=== PATIENT | male | born 1935 | race Caucasian/White ===

== ENCOUNTER 2021-12-13 06:25 | Observation (INO) ==
--- NOTE | 2021-11-15 09:00 | PAT Medication Instructions ---
Medication Instructions Date of Service November 15, 2021 Home Medications aspirin 81 mg tablet,delayed release 81 mg PO PM atenolol 25 mg tablet 25 mg PO QAM celecoxib 100 mg capsule (Celebrex) 100 mg PO QAM coenzyme Q10 100 mg capsule (Co Q-10) 100 mg PO QAM cyanocobalamin (vitamin B-12) 1,000 mcg tablet 1,000 mcg PO QAM fluticasone fur. 200 mcg-umeclid 62.5 mcg-vilant 25 mcg inhalat.powder (Trelegy Ellipta) 1 inh inhalation QAM glucosamine-chondroitin 250 mg-200 mg tablet (Osteo Bi-Flex) 2 tab PO QAM guaifenesin 1,200 mg tablet, extended release 12 hr (Mucinex) 1,200 mg PO BID multivitamin 1 tab PO QAM pantoprazole 20 mg tablet,delayed release (Protonix) 20 mg PO QAM rosuvastatin 40 mg tablet (Crestor) 40 mg PO PM valsartan 320 mg-hydrochlorothiazide 25 mg tablet 1 tab PO PM ASK your surgeon for instructions celecoxib 100 mg capsule (Celebrex) 100 mg PO QAM STOP taking 2 weeks before surgery coenzyme Q10 100 mg capsule (Co Q-10) 100 mg PO QAM glucosamine-chondroitin 250 mg-200 mg tablet (Osteo Bi-Flex) 2 tab PO QAM DO NOT take the morning of surgery cyanocobalamin (vitamin B-12) 1,000 mcg tablet 1,000 mcg PO QAM guaifenesin 1,200 mg tablet, extended release 12 hr (Mucinex) 1,200 mg PO BID multivitamin 1 tab PO QAM Take morning of surgery With a small sip of water, OTHERWISE NOTHING TO EAT OR DRINK AFTER MIDNIGHT: atenolol 25 mg tablet 25 mg PO QAM fluticasone fur. 200 mcg-umeclid 62.5 mcg-vilant 25 mcg inhalat.powder (Trelegy Ellipta) 1 inh inhalation QAM pantoprazole 20 mg tablet,delayed release (Protonix) 20 mg PO QAM Take evening before surgery aspirin 81 mg tablet,delayed release 81 mg PO PM (unless directed otherwise by surgeon) guaifenesin 1,200 mg tablet, extended release 12 hr (Mucinex) 1,200 mg PO BID rosuvastatin 40 mg tablet (Crestor) 40 mg PO PM valsartan 320 mg-hydrochlorothiazide 25 mg tablet 1 tab PO PM Other Notes If you have any questions please call us at [phone] or [phone] or or [phone]
--- NOTE | 2021-11-21 10:49 | Anesthesiology Consultation ---
Date of Service November 21, 2021 Assessment & Plan (1) Encounter for pre-operative examination: - will attempt to obtain copy of nuclear results of 09/25/18 stress test, most recent aneurysm imaging and office note from Dr. Blanca with [facility]. - anesthesia complication history: history of awareness during TKA, post-op combative behavior. Chart Review Chart Review: Pending: Refer to Additional Notes / Consult section and Patient seen in Pre Admission Testing Teaching & Discussion Pre-Anesthesia Teaching/Discussion Notes: Instructed NPO after midnight before surgery, except medications with 15 cc of water. Medication instructions provided according to the PAT guidelines. History Surgery Operation Date: 12/13/21 07:00 Proposed Procedures p Right Total Knee Arthroplasty - Anurag Ware MD Height/Weight Height: 5 ft 8 in Weight: 100.2 kg Allergies Allergy/AdvReac Type Severity Reaction Status Date / Time adhesive Allergy Unknown "skin red" Verified 11/11/21 12:22 bacitracin Allergy Unknown RASH Verified 11/11/21 12:22 neomycin Allergy Unknown RASH Verified 11/11/21 12:22 polymyxin B Allergy Unknown RASH Verified 11/11/21 12:22 Medications Home Medications Medication Instructions Recorded Confirmed Last Taken aspirin 81 mg tablet,delayed 81 mg PO PM 11/11/21 11/11/21 Unknown release atenolol 25 mg tablet 25 mg PO QAM 11/11/21 11/11/21 Unknown celecoxib 100 mg capsule (Celebrex) 100 mg PO QAM 11/11/21 11/11/21 Unknown coenzyme Q10 100 mg capsule (Co 100 mg PO QAM 11/11/21 11/11/21 Unknown Q-10) cyanocobalamin (vitamin B-12) 1,000 mcg PO QAM 11/11/21 11/11/21 Unknown 1,000 mcg tablet fluticasone fur. 200 mcg-umeclid 1 inh inhalation QAM 11/11/21 11/11/21 Unknown 62.5 mcg-vilant 25 mcg inhalat.powder (Trelegy Ellipta) glucosamine-chondroitin 250 mg-200 2 tab PO QAM 11/11/21 11/11/21 Unknown mg tablet (Osteo Bi-Flex) guaifenesin 1,200 mg tablet, 1,200 mg PO BID 11/11/21 11/11/21 Unknown extended release 12 hr (Mucinex) multivitamin 1 tab PO QAM 11/11/21 11/11/21 Unknown pantoprazole 20 mg tablet,delayed 20 mg PO QAM 11/11/21 11/11/21 Unknown release (Protonix) rosuvastatin 40 mg tablet (Crestor) 40 mg PO PM 11/11/21 11/11/21 Unknown valsartan 320 1 tab PO PM 11/11/21 11/11/21 Unknown mg-hydrochlorothiazide 25 mg tablet Wheeled Walker #1 ea 11/21/21 11/21/21 Unknown Past Medical History Medical History (Updated 11/21/21 @ 13:48 by Alayna Olson PA-C) Aortic aneurysm 5cm per pt > follows with Dr. Blanca at [facility], last checked approx 1 month ago Chronic obstructive pulmonary disease well controlled, stable per pt DJD (degenerative joint disease) GERD (gastroesophageal reflux disease) controlled, stable per pt History of anesthesia reaction awareness during anesthesia, post-op combative behavior History of COVID-06 Feb 2021 > congestion > denies hospitalization > resolved Hyperlipidemia Hypertension controlled, stable per pt Internal carotid artery stent present R, replaced 10-11 yrs later per pt through [facility] study-placed in 2005 s/p stroke Neuropathy hands and feet Skin cancer nose, s/p excision Sleep apnea cpap-compliant Stroke hx of 2005 > very mild per pt, no residual problems, no longer follows with neuro Patient denies h/o seizures, heart attack, heart failure, DM, blood clots or blood transfusions. Exercise / Class Metabolic Activity II 4-5 Yardwork/Stairs/Walk up hill (denies CP or SOB with 1 FOS) Past Family History Family History Father Lung cancer Past Surgical History Surgical History History of cataract surgery bilat History of colonoscopy History of esophagogastroduodenoscopy (EGD) with dilation History of tonsillectomy History of tooth extraction History of total knee replacement left Hx of melanoma excision nose S/P AAA repair Oct 2020 > [facility] Past Anesthesia History No Family Hx of Anesthesia Complications and Other (post-op combativeness, awareness during TKA) History of PONV No Hx of PONV and No Hx of Motion Sickness Social History Smoking Status: Former smoker Do You Dip or Chew Tobacco: No Smoking End Date: 1958 Hx Alcohol Use: Yes Alcohol type: beer alcohol intake frequency: a few times a week Hx Substance Use: No substance use type: does not use Review of Systems Patient denies chest pain, shortness of breath, dyspnea on exertion, fever, chills, cough, wheezing, or palpitations. Physical Exam Vital Signs Vitals BP 151/77 P 58 TEMP 98.9 SP02 95% on RA RESP 18 Physical Full cervical extension range of motion without pain TMD 3.5 finger breadths Mallampati Score 3 Dentition: intact, one bridge-upper; denies chipped or loose teeth, caps/crowns Lungs: normal respiratory effort. Good respiratory effort, good air movement. Mild end expiratory wheezes throughout, no rales or rhonchi Cardiac: regular rate and rhythm, no murmurs noted Carotid arteries: negative bruit bilat Lab Results Anesthesia Preop Results Results Anesthesia Widget: WBC 10.68 K/ul (4.8-10.8) 11/21/21 Hgb 13.0 g/dl (14.0-18.0) L 11/21/21 Hct 37.9 % (40.1-51.0) L 11/21/21 Plt 160 K/uL (130-400) 11/21/21 Na 137 mmol/L (136-145) 11/21/21 K 4.0 mmol/L (3.5-5.1) 11/21/21 Cl 105 mmol/L (98-107) 11/21/21 CO2 25 mmol/L (21-32) 11/21/21 BUN 20 mg/dl (6-23) 11/21/21 Creat 0.92 mg/dl (0.6-1.4) 11/21/21 Glucose Level 94 mg/dl (70-99(Fasting)) 11/21/21 PT 10.9 Seconds (9.0-12.0) 11/21/21 PTT 26.3 Seconds (21.0-31.0) 11/21/21 INR 1.0 (0.9-1.1) 11/21/21 Blood Type A Positive 11/21/21 Antibody Screen NEGATIVE 11/21/21 Testing Electrocardiogram Date: 11/11/21 NSR, rate 82 bpm Possible anterolateral infarct, age undetermined Chest X-Ray Date: 11/21/21 The heart is enlarged noting atherosclerotic calcification of the thoracic aorta. The pulmonary vasculature is noncongested. Chronic interstitial thickening is similar to previous. There are scattered calcified granulomas. Scarring/atelectasis is noted at the lung bases. The lungs and pleural spaces are otherwise clear. There is no pneumothorax. The skeletal structures are osteopenic. The bony thorax appears intact. Degenerative change is noted in the shoulders and thoracic spine. IMPRESSION: Cardiomegaly with no active disease in the chest. Echocardiogram Date: 01/07/21 EF 60-65% Normal LV diastolic filling No LV wall motion abnormalities Aortic root with off axis views but proximal ascending aorta overall appears aneurysmal at 5.0 cm and sinus of Valsalva is mildly dilated at 4 cm No significant valvular abnormalities Stress Test Date: 09/25/18 Pharmacologic MPHR not reported Unremarkable ECG portion. No ischemic ECG changes Nuclear results to be reportedly separately COVID-19 Risk Screen Screening Information COVID-19 Screen Date: 11/21/21 Exposure 21 Days Family/Household +COVID Last 21 Days: No Exposure 10 Days Any COVID Exposure Last 10 Days: No Symptoms Last 10 Days Experienced COVID Sx Last 10 Days: No + COVID 0-90 Days COVID + in Last 0-90 Days: No
[~2021-12-13 06:25] MED LIST: ACETAMINOPHEN 500 MG TAB PO SCH; BUPIVACAINE 0.5 % 5 MG/1 ML PF 10ML VIAL ONE; BUPIVACAINE LIPOSOME/PF 266 MG, BUPIVACAINE/EPINEPHRINE 50 ML, SODIUM CHLORIDE 0.9% 30 ... INFIL SCH; CeleBREX 200 MG CAP PO SCH; FAMOTIDINE 20 MG TAB PO SCH; LR 500ML BOLUS, THEN 15ML/HR IV SCH; LR 60ML/HR IV SCH; METOCLOPRAMIDE HCL 10 MG TABLET PO SCH; ROPIVACAINE 0.5% 5 MG/ML 30 ML VIAL ONE; ceFAZolin 2000MG 2,000 MG/15 ML SYR IV SCH
--- NOTE | 2021-12-13 06:54 | History & Physical Bridge Note ---
Date of Service December 13, 2021 History & Physical Bridge Note I have examined the patient, reviewed the History & Physical and in the interval since the performance of the History & Physical I have noted the following changes of clinical significance: no changes noted
[2021-12-13] MEDS ORDERED: MIDAZOLAM HCL 1 MG/ML 2ML VIAL ONE (07:49)
[2021-12-13] MEDS ORDERED: fentaNYL citrate 100 MCG/2 ML VIAL ONE (07:50)
[2021-12-13] MEDS ORDERED: PROPOFOL IV EMULSION 10 MG/ML 20 ML VIAL IV ONE (07:53)
[2021-12-13] MEDS ORDERED: ONDANSETRON INJ 2 MG/ML 2 ML VIAL ONE (07:54)
[2021-12-13] MEDS ORDERED: BUPIVACAINE LIPOSOME 1.3% 266 MG/20 ML VIAL ONE (09:04)
[2021-12-13] MEDS ORDERED: BUPIVACAINE/EPINEPHRINE 0.25% 1:200,000 30 ML VIAL ONE (09:04)
[2021-12-13] MEDS ORDERED: SODIUM CHLORIDE 0.9% PF 50 ML VIAL ONE (09:04)
[2021-12-13] MEDS ORDERED: ePHEDrine sulfate 50 MG/ML AMP ONE ×2 (09:29→10:01)
[2021-12-13] MEDS ORDERED: LIDOCAINE 2% MPF LOCAL 5 ML VIAL INFIL ONE (09:29)
[2021-12-13] MEDS ORDERED: ePHEDrine sulfate 50 MG/ML AMP IV PRN (09:35)
[2021-12-13] MEDS ORDERED: fentaNYL citrate 100 MCG/2 ML VIAL IV PRN (09:35)
[2021-12-13] MEDS ORDERED: ATROPINE SULFATE 0.1 MG/ML 10ML SYR IV PRN (09:35)
[2021-12-13] MEDS ORDERED: HYDROmorphone INJ 2 MG/ML SYR/VIAL IV PRN (09:35)
[2021-12-13] MEDS: TRANEXAMIC ACID 1,000 MG **IV Intra-op IV SCH ×2 (10:18→10:32)
[2021-12-13] MEDS ORDERED: TRANEXAMIC ACID / 0.7% NACL 1000MG/100ML BAG IV ONE (10:32)
--- NOTE | 2021-12-13 11:13 | Operative Report ---
PG Post Operative Report Pre & Post Diagnosis Operation Date: 12/13/21 08:50 Pre-Op Diagnosis: Right Knee Advanced Degerative Joint Disease Post-Op Diagnosis: Right Knee Advanced Degerative Joint Disease I identified the patient and participated in the time-out.: Yes Procedure Operation Date: 12/13/21 08:50 Actual Procedures p Right Total Knee Arthroplasty(Right) - Anurag Ware MD Surgeon Anurag Ware MD Psychology Professor Geovani Velasco PA-C Estimated Blood Loss 50 Findings Consistent with Post-Op Diagnosis Operative findings real advanced right knee DJD. He had extensive grade 4 [id number] disease of the medial as well as the patellofemoral compartment. He had some spotty grade 4 changes laterally. Varus deformity to his knee with a moderate-sized knee joint effusion. Fluids 1200 cc Specimens Right knee sent for pathology Drains None Anesthesia Type Spinal MAC Complications none Disposition Accompanied Patient To Recovery: No Indications Patient is an 86-year-old gentleman said a long history of knee problems over the years. This been through extensive conservative treatment in the past. He had his left knee replaced about 8 years ago and is done well from this. Continued be limited by right knee pain and discomfort which is gotten worse over time. Elected proceed with total knee arthroplasty. Description of Procedure Operative implants consist of: 1 Biomet Vanguard size 75 right posterior stabilized femoral component. 2. Biomet size 83 tibial tray. 3. 12 mm posterior stabilized polyethylene insert. 4. 34 x 8 and half all Paller patella. The patient was taken the operating, identified, placed on the operating table supine position protectors were properly padded. IV antibiotics tried by anesthesia team. A spinal anesthetic and abductor canal block had provided in the holding area. Klein catheter was placed in sterile fashion. Right thigh high tourniquet was then placed in the right lower extremities then prepped and draped in usual sterile fashion. The right leg was elevated exsanguinated with use of an Esmarch interspaced at 300 mmHg. An anterior approach of the right knee was then performed through a longitudinal incision centered over the patella. Sharp dissection was carried through subcutaneous this down the extensor mechanism. A medial parapatellar arthrotomy incision was made. Some subperiosteal dissection was carried out medially. The fat pad was resected from Neath patella tendon. Lateral patellofemoral ligament was released. Patella subluxated laterally and the knee was flexed. The osteophytes taken off distal femur. The ACL and PCL were then released from distal femur the tibia subluxated anteriorly. The external tibial alignment jig was then placed in the interface the tibia and adjusted 14 mm medially. Proximal tibial cut was made remove about a millimeter bone from most deficient aspect medial tibial plateau. The tibia was a size 83. Attention drawn the femur. The distal femur examined the sharp drill. Intramedullary canal was suction. A right 6 degree valgus cutting guide was placed. Distal femoral cutting block was pinned in place. Distal femoral cut was made to take an additional 3 mm of bone off distal femur. The femur was then sized to a size 75. Sized almost exactly to a 75. The AP cutting block was pinned parallel to the epicondylar axis which was 5 degrees of external rotation. Anterior cut, anterior chamfer, posterior cut, posterior chamfer cuts were made. The box cutting guide was placed in just slight lateral and the box cut was made. The knee was flexed. The remnants of the medial lateral menisci were excised. The osteophytes were taken off the posterior aspect the femur. Trial femoral component was placed. Tibial tray was pinned in maximum external rotation and the drill and stem punch were used to create defect in proximal tibia for the tibial tray. Knee was then trialed and the 12 mm insert fit most appropriately. Attention drawn to the patella. The patella was cleaned of all soft tissues. Patella thickness measured 21 mm in thickness and was cut down to 14. Was sized to a size 34 patella. The lug holes were drilled for 34 patella. The lateral osteophyte was removed. Patella button was placed. Knee was taken through range of motion patella tracked nicely with no thumbs test. Attention drawn to place the permanent components. Nupathe all trial components were removed. Bone plug was placed in the distal femur limit blood loss. A double batch Palacos G cement was mixed. Biomet HumansFirst Technologyguard size 75 right posterior stabilized femoral component, size 83 tibial tray, a 12 mm posterior stabilized polyethylene insert, and a 34 x 8 and half all Paller patella then cemented in place. Knee was brought out into full extension total cement hardened. Final cement check was then performed. Pericapsular tissues were injected with total of 100 cc of combination of 20 cc of Exparel, 30 cc normal saline, 50 cc of quarter percent Marcaine with epinephrine. Patient did receive 1 g tranexamic acid. The tourniquet was then let down for final tourniquet time 54 minutes. Hemostasis reduced electrocautery. Extensor mechanism closed with combination 1 PDS suture #1 Vicryl suture in [id number] fashion. Extensor mechanism checked found to be intact. Subcutaneous tissue then closed with 2 Dexon suture in a buried interrupted fashion and the skin was closed skin rosana. Leg was then cleaned and dried a sterile dressing was Xeroform, 4 x 4's, sterile cast padding, Hector bandage were applied. Patient then transferred to the recovery room in stable condition. Patient tolerated procedure well and there were no complications. Geovani Velasco, my physician catalog library assistant, was present for the entire procedure. His assistance was essential and required for appropriate patient positioning, prepping and draping, surgical exposure, performing the technical details of the operation, placement the implants, closure of the wound, and placement of the sterile bandage. I attest to the content of the Intraoperative Record and any orders documented therein. Any exceptions are noted below.
--- NOTE | 2021-12-13 11:55 | XRay Report ---
XR knee RT 1 or 2V routine CLINICAL HISTORY: Postoperative evaluation. COMPARISON: Knee radiographs August 18, 2021. FINDINGS: Spherical metallic densities within the right leg were noted on prior radiographs and sugg ests BBs. Alignment of the total right knee arthroplasty is anatomic. There is no periprosthetic frac ture or unexpected radiopaque foreign body. There are skin rosana. IMPRESSION: Expected findings following total right knee arthroplasty. ACT 112: Negative or not required by law. Electronically signed by: Nilesh Ortega M.D. 12/13/2021 11:53 AM
--- NOTE | 2021-12-13 13:03 | Anesthesiology Progress Note ---
Date of Service December 13, 2021 Anesthesia Post Procedure Vital Signs Vital Signs: Temp Pulse Resp BP Pulse Ox O2 Del Method O2 Flow Rate 12/13/21 12:30 55 L 18 128/62 98 Nasal Cannula 2 12/13/21 12:20 36.3 C L 63 12 107/56 L 97 Nasal Cannula 2 12/13/21 12:05 54 L 13 111/61 92 Nasal Cannula 2 12/13/21 11:55 59 L 12 103/60 99 Nasal Cannula 2 12/13/21 11:45 57 L 12 113/58 L 94 Nasal Cannula 2 12/13/21 11:35 60 12 101/60 92 Room Air 12/13/21 11:15 60 18 97/53 L 98 Oxymask 6 12/13/21 11:25 64 16 105/52 L 94 Room Air 12/13/21 11:06 36.1 C L 61 20 93/53 L 94 Oxymask 6 12/13/21 06:50 36.9 C 55 L 20 123/64 94 Room Air Pain Intensity Right Knee: Pain Intensity: 1 Transfer of Care Handoff Completed per policy Notes Mental Status: alert / awake / arousable and participated in evaluation Patient Amnestic to Procedure: Yes Nausea / Vomiting: adequately controlled Pain: adequately controlled Airway Patency, RR, SpO2: stable & adequate BP & HR: stable & adequate Hydration State: stable & adequate Neuraxial Anesthesia: was administered and sensory block is resolving Anesthetic Complications: no major complications apparent and Pt Satisfied with anesthetic care
[2021-12-13] MEDS ORDERED: ONDANSETRON INJ 2 MG/ML 2 ML VIAL IV PRN (13:15)
[2021-12-13] MEDS ORDERED: bisacodyL 10 MG SUPP PR PRN (13:15)
[2021-12-13] MEDS ORDERED: ALUMINUM/MAGNESIUM SUSP 30 ML UDC PO PRN (13:15)
[2021-12-13] MEDS ORDERED: oxyCODONE HCL IR 5 MG TAB (IMMEDIATE RELEASE) PO PRN (13:15)
[2021-12-13] MEDS ORDERED: MAGNESIUM HYDROXIDE SUSP 30 ML UDC PO PRN (13:15)
[2021-12-13] MEDS ORDERED: METOCLOPRAMIDE HCL INJ 5 MG/ML 2 ML VIAL IV PRN (13:15)
[2021-12-13] MEDS ORDERED: HYDROmorphone INJ 0.5 MG/0.5 ML SYR IV PRN (13:15)
[2021-12-13] MEDS ORDERED: NALOXONE HCL 0.4 MG/1 ML VIAL/CARP IV PRN (13:15)
[2021-12-13] MEDS: SODIUM CHLORIDE 0.9% 1000ML 1,000 ML IV SCH ×2 (13:32→22:44)
[2021-12-13] MEDS: ACETAMINOPHEN 500 MG TAB PO SCH ×2 (13:59→21:02)
[2021-12-13] MEDS: ASCORBIC ACID 500 MG TAB PO SCH (17:10)
[2021-12-13] MEDS: KETOROLAC TROMETHAMINE 15 MG/ML VIAL IV SCH (17:11)
[2021-12-13] MEDS: ceFAZolin 2000MG 2,000 MG/15 ML SYR IV SCH (17:11)
[2021-12-13] MEDS ORDERED: TRANEXAMIC ACID / 0.7% NACL 1,000 MG/100 ML BAG IV SCH (17:15)
[2021-12-13] MEDS: ASPIRIN 81 MG ECTAB PO SCH (20:59)
[2021-12-13] MEDS: DOCUSATE SODIUM 100 MG CAP PO SCH (21:00)
[2021-12-13] MEDS ORDERED: SENNA 8.6 MG TAB PO SCH (21:00)
[2021-12-13] MEDS ORDERED: DOCUSATE SODIUM/SENNA 50/8.6MG TAB PO SCH (21:00)
[2021-12-13] MEDS ORDERED: ROSUVASTATIN CALCIUM 20 MG TAB PO SCH (21:00)
[2021-12-13] MEDS ORDERED: VALSARTAN/HCTZ 160/12.5MG TAB PO SCH (21:00)
[2021-12-13] MEDS: guaiFENesin 600 MG TABCR PO SCH (21:00)
[2021-12-13] MEDS ORDERED: hydroCHLOROthiazide 25 MG TAB PO SCH ×2 (22:15)
[2021-12-13] MEDS ORDERED: VALSARTAN 80 MG TAB PO SCH ×2 (22:15)
[2021-12-14] MEDS: KETOROLAC TROMETHAMINE 15 MG/ML VIAL IV SCH ×3 (00:24→12:19)
[2021-12-14] MEDS: traMADol HCL 50 MG TABLET PO PRN ×2 (00:25→10:06)
[2021-12-14] MEDS: ceFAZolin 2000MG 2,000 MG/15 ML SYR IV SCH (00:29)
[2021-12-14] MEDS: ACETAMINOPHEN 500 MG TAB PO SCH (05:58)
[2021-12-14 07:36] LABS: Hematocrit (blood only) 32.2 % (40.1-51.0); Hemoglobin 10.9 g/dl (14.0-18.0); Mean Corpuscular Hemoglobin 32.1 pg (25.0-34.0); Mean Corpuscular Hgb Conc 33.9 g/dL (32.0-36.0); Mean Corpuscular Volume 94.7 fL (80.0-100.0); Mean Platelet Volume 8.9 fL (9.4-12.4); Platelet Count 120 K/uL (130-400); RDW Coefficient of Variation 13.8 % (11.5-14.5); RDW Standard Deviation 47.8 fL (36.4-46.3); White Blood Count 9.82 K/ul (4.8-10.8)
[2021-12-14 07:56] LABS: BUN Creatinine Ratio 19.3 (10-20); Calcium 8.1 mg/dl (8.5-10.1); Creatinine Clr Calc Pharmacy 57.8 ml/min; Est GFR (African American) 71.9 ml/min; Potassium 4.2 mmol/L (3.5-5.1)
[2021-12-14] MEDS ORDERED: dexAMETHasone 10 MG in SYRINGE 0 ML IV SCH (08:00)
[2021-12-14] MEDS ORDERED: UMECLIDINIUM/VILANTEROL 62.5/25MCG 7 PUFFS/INHALER INH SCH (08:00)
[2021-12-14] MEDS ORDERED: FLUTICASONE FUROATE 200MCG 14 PUFFS/INHALER INH SCH (08:00)
[2021-12-14] MEDS ORDERED: ATENOLOL 25 MG TABLET PO SCH (09:00)
[2021-12-14] MEDS ORDERED: MULTIVITAMIN TAB PO SCH ×2 (09:00)
[2021-12-14] MEDS ORDERED: CYANOCOBALAMIN (B-12) 500 MCG TABLET PO SCH (09:00)
[2021-12-14] MEDS ORDERED: TAMSULOSIN HCL 0.4 MG CAP PO SCH (09:00)
[2021-12-14] MEDS ORDERED: NON-FORMULARY MEDICATION (Coenzyme Q10 [Co Q-10] 100 mg Capsule) PO SCH (09:00)
[2021-12-14] MEDS ORDERED: GLUCOSAMINE SULFATE 500 MG CAP PO SCH (09:00)
[2021-12-14] MEDS ORDERED: PANTOprazole 40 MG TAB PO SCH (09:00)
[2021-12-14] MEDS: ASCORBIC ACID 500 MG TAB PO SCH (09:11)
[2021-12-14] MEDS: DOCUSATE SODIUM 100 MG CAP PO SCH (09:14)
[2021-12-14] MEDS: ASPIRIN 81 MG ECTAB PO SCH (09:14)
[2021-12-14] MEDS: guaiFENesin 600 MG TABCR PO SCH (09:15)
--- NOTE | 2021-12-14 13:08 | Progress Notes ---
DATE OF SERVICE: 12/14/2021. SUBJECTIVE: An 86-year-old gentleman, postoperative day 1 from right knee replacement. He is doing quite well. Pain is controlled. Therapy went well. No chest pain or shortness of breath. He is ho ping to go home. OBJECTIVE: VITAL SIGNS: Temperature 36.6. Vital signs are stable. PHYSICAL EXAMINATION: GENERAL: Shows a pleasant, elderly male. He is sitting up in bedside chair, eating lunch. Looks co mfortable. LUNGS: Clear to auscultation. HEART: Has a regular rate and rhythm. ABDOMEN: Soft, nontender, nondistended. EXTREMITIES: Grossly neurovascularly intact except as follows: Examination of the right knee reveal s the dressing to be clean, dry and intact. He can dorsiflex and plantarflex his foot appropriately. He is neurologically intact. LABORATORY DATA: Hemoglobin 10.9. Hematocrit 32.2. Electrolytes are stable. ASSESSMENT: An 86-year-old gentleman, postoperative day 1 from right knee replacement, doing pretty well. Pain is controlled. He is neurologically intact. Therapy went well. PLAN: 1. DVT prophylaxis includes thigh-high TEDs, SCDs, and aspirin twice a day. 2. PT, OT, weightbear as tolerated. Right total knee protocol. 3. Pain control, doing okay with current pain regimen. 4. Disposition: Plan to discharge to home with some home health later today. Job ID: [id number]
--- NOTE | 2021-12-17 17:19 | Discharge Summary ---
Date of Service December 17, 2021 Discharge Data Procedures Performed Operation Date: 12/13/21 08:50 Actual Procedures p Right Total Knee Arthroplasty(Right) - Anurag Ware MD Hospital Course (1) Status post total right knee replacement: This is a 86 year old patient admitted on 12/13/21 and underwent total knee arthroplasty. He tolerated the procedure well and there were no complications. Transferred to the PACU post op and later to the orthopedic floor for further care. He was given ancef for antibiotic prophylaxis. He was also given MARTHA stockings, SCDs, and aspirin for DVT prophylaxis. Hemoglobin, hematocrit, and vital signs were monitored during his hospital stay and remained stable. Did not require any blood transfusions. There were no complications during [facility] stay. By post op day #1 the patient was tolerating a regular diet, pain was reasonably controlled with oral pain medicine, and he was participating in physical therapy. On post op day #1 the patient was discharged home and set up with home health care. He was given printed discharge instructions including prescriptions for extra strength tylenol, aspirin, ketorolac, zofran, senokot, flomax, and ox ycodone. Continue physical therapy, weight bearing as tolerated. Continue MARTHA stockings. Follow up approximately 2 weeks post op or sooner if there are problems or concerns. Coding Level of Care Code None Diagnoses Status post total right knee replacement Z96.651
== END 2021-12-14 13:25 | disposition home health service (06) ==
LOC: 3W 06:25 → ASU 06:25